=== PATIENT | male | born 1960 | race Asian ===

== ENCOUNTER 2019-12-31 05:24 | Emergency (ER) | payer BC ==
[~2019-12-31] VITALS: Ht 170.2 cm; Wt 72.6 kg
--- NOTE | 2019-12-31 05:41 | NUR ---
PT CAME IN TO THE ER C/O BODY ACHES, FEVER AND DIFFUSE ABD PAIN W/ N/V X 4 DAYS. PT AAOX4, VSS, RESPIRATIONS EVEN AND UNLABORED ON RA W/ NAD NOTED. PT CONNECTED TO THE MONITOR AND POX
--- NOTE | 2019-12-31 06:25 | NUR ---
BLOOD COLLECTED AND SENT TO LAB
[2019-12-31 06:27] LABS: BASOPHILS % (AUTO) 0.4 % (0.0-2.0); HEMATOCRIT 43 % (39-51); HEMOGLOBIN 14.5 g/dL (13.5-17.5); LYMPHOCYTES # (AUTO) 0.6 /CMM (0.8-4.8); LYMPHOCYTES % (AUTO) 8.1 % (20.0-44.0); MEAN CORPUSCULAR HGB CONC 34 g/dl (31.0-36.0); MEAN CORPUSCULAR VOLUME 91 fL (80-96); MONOCYTES # (AUTO) 0.7 /CMM (0.1-1.30); MONOCYTES % (AUTO) 9.4 % (2.0-12.0); NEUTROPHILS # (AUTO) 6.1 /CMM (1.8-8.9); NEUTROPHILS % (AUTO) 82.1 % (43.0-81.0); PLATELET COUNT (AUTO) 178 /CMM (150-450); RED BLOOD CELL COUNT(AUTO) 4.73 MIL/uL (4.5-6.0); WHITE BLOOD COUNT (AUTO) 7.4 K/uL (4.3-11.0)
[2019-12-31] MEDS ORDERED: IV NS 0.9% 50 ML IV ONE (06:30)
[2019-12-31] MEDS ORDERED: IV NS 0.9% 500 ML BAG IV ONE (06:30)
[2019-12-31 06:43] LABS: CALCIUM, SERUM 8.3 mg/dL (8.5-10.1); CARBON DIOXIDE 28 mmol/L (21-32); CHLORIDE 97 mmol/L (98-107); CREATININE 1.2 mg/dL (0.6-1.3); GLUCOSE 98 mg/dL (74-106); POTASSIUM 3.6 mmol/L (3.5-5.1); SODIUM SERUM 136 mmol/L (136-145); UREA NITROGEN, BLOOD 18 mg/dL (7-18)
[2019-12-31 06:55] LABS: ALANINE AMINOTRANSFERASE 57 U/L (12-78); ALBUMIN 2.9 g/dL (3.4-5.0); ALKALINE PHOSPHATASE 50 U/L (46-116); ASPARTATE AMINOTRANSFERASE 46 U/L (15-37); B-TYPE NATRIURETIC PEPTIDE 40 PG/ML (0-125); BILIRUBIN,DIRECT 0.3 mg/dL (0.0-0.2); BILIRUBIN,TOTAL 0.9 mg/dL (0.2-1.0); TOTAL PROTEIN, SERUM 7.5 g/dL (6.4-8.2)
--- NOTE | 2019-12-31 07:13 | NUR ---
COVID SWAB COLLECTED AND SENT TO THE LAB.
--- NOTE | 2019-12-31 07:20 | NUR ---
REPORT GIVEN TO CARMEL BAHENA FOR CHENG
[2019-12-31] MEDS ORDERED: DEXAMETHASONE SOD PHOSPHATE 10 MG/ML VIAL IV ONE (08:00)
[2019-12-31] MEDS ORDERED: DEXAMETHASONE SOD PHOSPHATE 10 MG/ML VIAL ONE (08:06)
[2019-12-31 08:16] VITALS: BP 140/71
--- NOTE | 2019-12-31 08:17 | NUR ---
IV removed. Catheter intact and site benign. Pressure and 4x4 applied to site. No bleeding noted. Patient discharged to home in stable condition. Written and verbal after care instructions given. Patient verbalizes understanding of instruction.
--- NOTE | 2020-01-01 09:04 | NUR ---
CALLED PT FOR COVID RESULT NO ANSWER.
== END 2019-12-31 08:17 | disposition home or self-care (01) ==
LOC: ER 05:25
DX: U07.1 COVID-19 (principal); R91.8 Other nonspecific abnormal finding of lung field; I10 Essential (primary) hypertension; E78.5 Hyperlipidemia, unspecified; E11.9 Type 2 diabetes mellitus without complications
CPT/HCPCS: 36415; 71045; 80048; 80076; 83880; 84145; 84484; 85025; 87040 ×2; 93005; 96374; 99285; C9803; J1100; U0003